=== PATIENT | female | born 1995 | race Caucasian/White ===

== ENCOUNTER 2017-09-22 02:25 | Emergency (ER) | payer MEDICARE, MEDICAID ==
[2017-09-22 02:25] VITALS: BMI 31.8
[2017-09-22 02:39] VITALS: PULSE 64; O2SAT 100
--- NOTE | 2017-09-22 02:52 | C.PDOC ---
History Of Present Illness pt c/o mid epigastric pain. Pt was seen at [facility] [place], with a negative work up,. Pt states that the pepcid is " not helping" dull burning midepigastric discomfort. tolerating po Time Seen by Provider: 09/22/17 02:52 Chief Complaint (Nursing): Shortness Of Breath History Per: Patient History/Exam Limitations: no limitations Onset/Duration Of Symptoms: Days Current Symptoms Are (Timing): Still Present Severity: Mild Pain Scale Rating Of: 3 Past Medical History Reviewed: Historical Data, Nursing Documentation, Vital Signs Vital Signs: Last Vital Signs Temp 97.9 F 09/22/17 02:36 Pulse 64 09/22/17 02:36 Resp 14 09/22/17 03:00 BP 126/79 09/22/17 02:36 Pulse Ox 100 09/22/17 02:53 - Medical History PMH: Anemia, Asthma Surgical History: - [facility] Procedures ANESTH INJECT-SPIN CANAL (07/13/13) MONITORING NOS (07/10/13) LOW CERVICAL (07/13/13) SURG INDUCT LABOR NEC (07/13/13) Family History: States: No Known Family Hx - Social History Hx Tobacco Use: No Hx Alcohol Use: No Hx Substance Use: No - Immunization History Hx Tetanus Toxoid Vaccination: No Hx Influenza Vaccination: No Hx Pneumococcal Vaccination: No Review Of Systems Constitutional: Negative for: Fever, Chills Eyes: Negative for: Redness ENT: Negative for: Throat Pain Cardiovascular: Negative for: Chest Pain Gastrointestinal: Positive for: Abdominal Pain. Negative for: Nausea Genitourinary: Negative for: Hematuria Musculoskeletal: Negative for: Back Pain Skin: Negative for: Rash Neurological: Negative for: Weakness Psych: Negative for: Anxiety Physical Exam - Physical Exam Appears: Non-toxic, No Acute Distress Skin: Warm, Dry Eye(s): bilateral: Normal Inspection Oral Mucosa: Moist Neck: Supple Chest: Symmetrical Cardiovascular: Rhythm Regular Gastrointestinal/Abdominal: Soft, Tenderness (mild mid epigastric), No Distention, No Guarding, No Rebound Back: Normal Inspection Extremity: Normal ROM Extremity: Bilateral: Atraumatic Pulses: Left Dorsalis Pedis: Normal, Right Dorsalis Pedis: Normal Neurological/Psych: Oriented x3 Gait: Steady ED Course And Treatment - Laboratory Results Result Diagrams: 09/22/17 04:38 09/22/17 04:38 ECG: Interpreted By Me, Viewed By Me ECG Rhythm: Sinus Rhythm (71), Nonspecific Changes O2 Sat by Pulse Oximetry: 100 Pulse Ox Interpretation: Normal Reevaluation Time: 05:32 Reassessment Condition: Improved Disposition Counseled Patient/Family Regarding: Studies Performed, Diagnosis, Need For Followup - Disposition Referrals: [facility] [Outside] [facility] [Outside] Disposition: HOME/ ROUTINE Disposition Time: 02:52 Condition: FAIR Additional Instructions: Please return if symptoms recur Instructions: Abdominal Pain (ED), Gastritis (DC) Forms: RUN (Mexican) - Clinical Impression Clinical Impression: Abdominal pain, Gastritis
[2017-09-22] MEDS ORDERED: Aspirin 325 mg EC Tablets PO STA (04:00)
[2017-09-22] MEDS ORDERED: Aspirin 325 mg EC Tablets PO ONE (04:13)
[2017-09-22 04:42] LABS: BASO # 0.1 K/uL (0.0-0.2); BASO % 0.6 % (0.0-2.0); EOS # 0.1 K/uL (0.0-0.7); EOS % 0.5 % (0.0-4.0); HEMATOCRIT 39.5 % (34.0-47.0); LYMPH # 3.2 K/uL (1.0-4.3); LYMPH % 28.4 % (20.0-40.0); MEAN CORPUSCULAR HEMOGLOBIN 23.3 pg (27.0-31.0); MEAN CORPUSCULAR HGB CONC 31.5 g/dL (33.0-37.0); MEAN PLATELET VOLUME 8.6 fL (7.2-11.7); MONO # 0.6 K/uL (0.0-0.8); RED CELL DISTRIBUTION WIDTH 18.8 % (11.5-14.5); WHITE BLOOD COUNT 11.2 K/uL (4.8-10.8)
[2017-09-22 04:45] LABS: RBC URINE 2 /hpf (0-3); URINE BACTERIA RARE (<OCC); URINE BILIRUBIN NEGATIVE (NEGATIVE); URINE BLOOD NEGATIVE (NEGATIVE); URINE COLOR Yellow (YELLOW); URINE GLUCOSE (UA) NORMAL (Normal); URINE KETONE NEGATIVE (NEGATIVE); URINE LEUKOCYTE ESTERASE NEG Leu/uL (Negative); URINE PROTEIN NEGATIVE (NEGATIVE); URINE UROBILINOGEN NORMAL mg/dL (0.2-1.0); WBC URINE 2 /hpf (0-5)
[2017-09-22 04:58] LABS: ALB/GLOB RATIO 1.2 (1.0-2.1); CALCIUM 8.4 mg/dl (8.6-10.4); GFR AFRICAN-AMERICAN > 60; GLUCOSE,RANDOM 83 mg/dL (65-105); TOTAL PROTEIN 7.6 g/dL (6.3-8.3)
[2017-09-22 05:19] LABS: ALKALINE PHOSPHATASE 67 U/L (38-126); ALT/SGPT 46 U/L (9-52); AST/SGOT 39 U/L (14-36); BLOOD UREA NITROGEN 12 mg/dL (7-17); CARBON DIOXIDE 27 mmol/L (22-30); CHLORIDE 103 mmol/L (98-107); POTASSIUM 4.5 mmol/L (3.6-5.2); SODIUM 139 mmol/L (132-148)
[2017-09-22 05:49] VITALS: BP 129/68
[2017-09-22 05:50] VITALS: RESP 17; TEMP 97.8
--- NOTE | 2017-09-25 09:42 | CARD ---
APPROVED REPORT EKG Measurement Heart [id number] <Conclusion> Normal sinus rhythm Minimal voltage criteria for LVH, may be normal variant Borderline ECG
== END 2017-09-22 06:00 | disposition home or self-care (01) ==
LOC: C.ER 02:25
DX: K29.70 Gastritis, unspecified, without bleeding (principal); R10.13 Epigastric pain
CPT/HCPCS: 80053; 81001; 83690; 84484; 84703; 85025; 93005; 96374; 99285; C9113